=== PATIENT | male | born 1940 | race Two or more races ===

== ENCOUNTER 2020-01-20 06:05 | Day surgery (SDC) | payer MEDICARE ==
[~2020-01-20] VITALS: Ht 167.6 cm; Wt 69.7 kg
[2020-01-20] VITALS (8 sets, daily range): BP systolic 123–186; BP diastolic 63–79
[2020-01-20] MEDS ORDERED: ceFAZolin 2gm in dextrose, iso 50 ML IV ONE ×2 (06:30→07:29)
[2020-01-20] MEDS ORDERED: normal saline 1000ml 1,000 ML IV SCH (06:30)
[2020-01-20] MEDS ORDERED: LISI40TA4 PO (06:34)
[2020-01-20] MEDS ORDERED: CARV3.122 PO (06:34)
[2020-01-20] MEDS ORDERED: LATA2.5D14 (06:34)
[2020-01-20] MEDS ORDERED: AMLO5TAB16 PO (06:34)
[2020-01-20] MEDS ORDERED: METF-436 PO (06:34)
[2020-01-20] MEDS ORDERED: ATOR40TA72 PO (06:34)
[2020-01-20] MEDS ORDERED: CLOP75TA35 PO (06:34)
[2020-01-20] MEDS ORDERED: vancomycin/NS 1 GM ADD-VANTAGE 250 ML X 1 DOSE IV ONE (06:35)
[2020-01-20] MEDS ORDERED: ASPI-1053 PO (06:37)
[2020-01-20] MEDS ORDERED: LANTUS SQ (06:37)
[2020-01-20 07:29] LABS: BASOPHILS % (AUTO) 0.4 % (0-1); EOSINOPHILS # (AUTO) 0.1 X10'3 (0-0.9); EOSINOPHILS % (AUTO) 1.8 % (0-6); HEMATOCRIT 39.8 % (42.0-52.0); HEMOGLOBIN 13.3 g/dl (14.0-17.9); LYMPHOCYTES % (AUTO) 13.8 % (21-51); MEAN CORPUSCULAR HEMOGLOBIN 30.3 PG (27.0-31.0); MEAN CORPUSCULAR HGB CONC 33.5 g/dL (33.0-36.5); MEAN CORPUSCULAR VOLUME 90.3 FL (78-98); MEAN PLATELET VOLUME 7.6 FL (7.4-10.4); MONOCYTES # (AUTO) 0.5 X10'3 (0-0.9); MONOCYTES % (AUTO) 6.4 % (2-12); NEUTROPHILS # (AUTO) 5.9 X10'3 (1.8-7.7); NEUTROPHILS % (AUTO) 77.6 % (42-75); PLATELET COUNT 224 X10'3 (140-440); RED CELL DISTRIBUTION WIDTH 13.9 % (11.5-14.5); WHITE BLOOD COUNT 7.6 X10'3 (4.5-11.0)
[2020-01-20] MEDS ORDERED: fentaNYL/PF 50MCG/1 ML 2ML syringe ONE ×2 (07:29→08:18)
[2020-01-20] MEDS ORDERED: vancomycin 1,000mg inj ONE (07:29)
[2020-01-20] MEDS ORDERED: LIDOcaine 1% W/epiNEPHrine 1:100,000 20ml vial ONE (07:29)
[2020-01-20] MEDS ORDERED: midazolam 2 mg/2 ml injection ONE ×3 (07:29→08:18)
[2020-01-20 07:48] LABS: ALBUMIN 3.8 G/DL (3.4-5.0); ANION GAP 13 (8-16); BLOOD UREA NITROGEN 14 MG/DL (7-18); BUN/CREATININE RATIO 17.1 (5.4-32.0); CALCIUM 9.4 MG/DL (8.5-10.1); CHLORIDE 106 MMOL/L (99-107); CREATININE 0.82 MG/DL (0.60-1.10); GLUCOSE 152 MG/DL (70-104); MAGNESIUM 1.8 MG/DL (1.5-2.4); POTASSIUM 3.9 MMOL/L (3.5-5.1); SODIUM 142 MMOL/L (135-145); TOTAL CARBON DIOXIDE 23.4 MMOL/L (24-32); eGFR 90 ML/MIN
[2020-01-20] MEDS ORDERED: iohexol 350 MG/ML 50ML vial IV ONE (08:19)
[2020-01-20] MEDS ORDERED: HYDROcodone/acetaminophen 5mg/325mg tablet PO PRN (09:25)
[2020-01-20] MEDS ORDERED: HYDROcodone/acetaminophen 10/325mg tab PO PRN (09:25)
--- NOTE | 2020-01-20 10:24 | NUR ---
Pt came back from procedure and both IV antibiotics on eMAR where administered. Pt IV NS running at ordered rate.
== END 2020-01-20 11:40 | disposition home or self-care (01) ==
LOC: SSTAY O 06:05
PROVIDERS: ATTEND Internal Medicine Cardiovascular Disease
DX: I47.2 Ventricular tachycardia (principal); I25.5 Ischemic cardiomyopathy; I44.2 Atrioventricular block, complete; I25.118 Atherosclerotic heart disease of native coronary artery with other forms of angina pectoris; I25.2 Old myocardial infarction; I10 Essential (primary) hypertension; E78.5 Hyperlipidemia, unspecified; E11.9 Type 2 diabetes mellitus without complications; Z95.5 Presence of coronary angioplasty implant and graft; Z98.890 Other specified postprocedural states; Z79.4 Long term (current) use of insulin; Z79.899 Other long term (current) drug therapy; Z87.891 Personal history of nicotine dependence
CPT/HCPCS: 33249; 36415; 71045; 80048; 82948; 83735; 85025; 85610; 93005; 99152; 99153; C1721; C1894; C1895; J2250; J3010; J3370; J7030; Q9967; A4565; A6258